=== PATIENT | male | born 1965 | race Caucasian/White ===

== ENCOUNTER → 2020-03-20 10:42 | Outpatient (CLI) | payer OTHER, SELFPAY ==
--- NOTE | ~2020-03-20 | CT_ITS ---
EXAMINATION: CT abdomen pelvis w con INDICATION: Malignant carcinoid tumor of the jejunum TECHNIQUE: Computed tomographic images of the abdomen and pelvis were obtained after the administrati on of 100 cc of Omnipaque 350 intravenous contrast. The dose-length product (DLP) was 474.00 mGy-cm. Automated exposure control and iterative reconstruction technique were employed. COMPARISON: 03/15/2019 FINDINGS: Minimal dependent atelectasis is present in the lung bases. The heart size is normal. The g allbladder is surgically absent. Punctate calcifications in an otherwise normal liver likely represen t healed granulomatous disease. The spleen, pancreas, and adrenal glands are normal. The kidneys are unremarkable. There are changes of right hemicolectomy. No pathologically enlarged abdominal or pelvi c lymph nodes are identified. There is no free intraperitoneal gas or evidence of bowel obstruction. There is moderate distention of the urinary bladder. There is moderate lumbar spondylosis. A tiny fat -containing umbilical hernia is noted. IMPRESSION: 1. No evidence of metastatic disease. Reviewed, dictated and finalized at location A.
[2020-03-20 11:03] LABS: Estimated Glomerular Filt Rate > 60
== END ==
PROVIDERS: PCP Internal Medicine; Visit Provider Internal Medicine Medical Oncology
DX: C7A.011 Malignant carcinoid tumor of the jejunum (principal)
CPT/HCPCS: 74177; Q9967

== ENCOUNTER 2020-03-21 07:33 | Outpatient (CLI) | payer OTHER, SELFPAY ==
[2020-03-21 08:47] LABS: Basophils Absolute Auto 0.1 K/mm3 (0.0-0.1); Eosinophils Absolute Auto 0.4 K/mm3 (0-0.3); Hematocrit 45.9 % (42.0-52.0); Immature Granulocyte Absolute 0.01 K/mm3 (0.00-0.031); Immature Granulocyte Percent A 0.2 % (0-0.5); Lymphocytes Absolute Auto 2.25 K/mm3 (0.9-3.2); Lymphocytes Percent Auto 45.3 % (18.3-44.2); Mean Corpuscular HGB Conc 34.9 g/dl (32-36); Mean Corpuscular Hemoglobin 31.5 pg (26-34); Mean Corpuscular Volume 90.4 fl (80-100); Mean Platelet Volume 9.2 fl (7.4-10.4); Monocytes Absolute Auto 0.3 K/mm3 (0.1-0.6); Monocytes Percent Auto 6.6 % (2.6-8.5); Neutrophils Percent Auto 39.9 % (45.5-73.1); Platelet Count Result 255 k/mm3 (150-375); Red Blood Count 5.08 M/mm3 (4.6-6.20); Red Cell Distribution Width 12.3 % (11.5-14.5)
[2020-03-21 09:02] LABS: Alanine Aminotransferase 41 U/L (4-50); Albumin Level 4.4 g/dL (3.5-5.1); Alkaline Phosphatase 78 U/L (38-126); Anion Gap 5 mmol/L (8-16); Aspartate Amino Transferase 37 U/L (17-59); Bilirubin,Total 0.7 mg/dL (0.2-1.3); Blood Urea Nitrogen 14 mg/dL (9-20); Calcium 9.2 mg/dL (8.4-10.2); Carbon Dioxide 30 mmol/L (22-30); Chloride 102 mmol/L (98-107); Cholesterol 196 mg/dL (0-200); Estimated Glomerular Filt Rate > 60; Glucose 85 mg/dL (75-110); HDL Direct 60 mg/dL; Potassium 4.8 mmol/L (3.4-5.0); Sodium 137 mmol/L (137-145); Triglycerides 93 mg/dL (<150)
[2020-03-21 09:13] LABS: LDL Cholesterol Direct 97 mg/dL
[2020-03-21 09:30] LABS: Prostate Specific Antigen 1.4 ng/mL (< OR = 4.0)
== END 2020-03-21 07:34 | disposition home or self-care (01) ==
PROVIDERS: PCP Internal Medicine; Visit Provider Internal Medicine
DX: Z00.00 Encounter for general adult medical examination without abnormal findings (principal)
CPT/HCPCS: 36415; 80053; 80061; 84153; 84443; 85025; G0103

== ENCOUNTER 2020-03-27 15:11 | Outpatient (CLI) | payer OTHER, SELFPAY ==
[2020-04-02 21:23] LABS: Chromogranin A 59 ng/mL (25-140)
== END 2020-03-27 15:12 | disposition home or self-care (01) ==
PROVIDERS: PCP Internal Medicine; Visit Provider Internal Medicine Medical Oncology
DX: C7A.011 Malignant carcinoid tumor of the jejunum (principal)
CPT/HCPCS: 36415; 86316

== ENCOUNTER 2020-09-24 14:26 | Outpatient (CLI) | payer OTHER, SELFPAY | END 2020-09-24 14:27 | disposition home or self-care (01) | LOC: ANHCOVIDVC 14:26 | PROVIDERS: PCP Internal Medicine | DX: Z23 Encounter for immunization (principal) | CPT/HCPCS: 0001A; 91300 ==

== ENCOUNTER 2020-10-15 14:24 | Outpatient (CLI) | payer OTHER, SELFPAY | END 2020-10-15 14:25 | disposition home or self-care (01) | LOC: ANHCOVIDVC 14:24 | PROVIDERS: PCP Internal Medicine | DX: Z23 Encounter for immunization (principal) | CPT/HCPCS: 0002A; 91300 ==

== ENCOUNTER → 2021-03-29 07:47 | Outpatient (CLI) | payer OTHER, SELFPAY ==
--- NOTE | ~2021-03-29 | CT_ITS ---
EXAMINATION: CT abdomen pelvis w con INDICATION: Malignant carcinoid tumor, unspecified site TECHNIQUE: Computed tomographic images of the abdomen and pelvis were obtained after the administrati on of 100 cc of Omnipaque 350 intravenous contrast. The dose-length product (DLP) was 479.90 mGy-cm. Automated exposure control and iterative reconstruction technique were employed. COMPARISON: 03/20/2020 FINDINGS: Minimal dependent atelectasis is present in the lung bases. The heart size is normal. The g allbladder is surgically absent. The liver, spleen, pancreas, and adrenal glands are normal. The kidn eys are unremarkable. Again noted are changes of right hemicolectomy. No pathologically enlarged abdo angel or pelvic lymph nodes are identified. There is no free intraperitoneal gas or evidence of bowel obstruction. There is moderate lumbar spondylosis. IMPRESSION: 1. No evidence of metastatic disease. Reviewed, dictated and finalized at location A.
[2021-03-29 08:21] LABS: Estimated Glomerular Filt Rate > 60
== END ==
PROVIDERS: PCP Internal Medicine; Visit Provider Internal Medicine Medical Oncology
DX: C7A.00 Malignant carcinoid tumor of unspecified site (principal)
CPT/HCPCS: 74177; Q9967

== ENCOUNTER 2021-04-05 07:01 | Outpatient (CLI) | payer OTHER, SELFPAY ==
[2021-04-05 07:32] LABS: Basophils Absolute Auto 0.1 K/mm3 (0.0-0.1); Basophils Percent Auto 0.8 % (0.2-1.2); Eosinophils Absolute Auto 0.6 K/mm3 (0-0.3); Eosinophils Percent Auto 9.2 % (0-4.4); Hematocrit 47.1 % (42.0-52.0); Hemoglobin 16.2 g/dL (14.0-18.0); Immature Granulocyte Absolute 0.01 K/mm3 (0.00-0.031); Immature Granulocyte Percent A 0.2 % (0-0.5); Lymphocytes Percent Auto 42.3 % (18.3-44.2); Mean Corpuscular HGB Conc 34.4 g/dl (32-36); Mean Corpuscular Volume 93.1 fl (80-100); Mean Platelet Volume 9.1 fl (7.4-10.4); Monocytes Absolute Auto 0.5 K/mm3 (0.1-0.6); Monocytes Percent Auto 7.7 % (2.6-8.5); Neutrophils Absolute Auto 2.5 K/mm3 (1.3-6.7); Neutrophils Percent Auto 39.8 % (45.5-73.1); Platelet Count Result 222 k/mm3 (150-375); Red Blood Count 5.06 M/mm3 (4.6-6.20); Red Cell Distribution Width 12.5 % (11.5-14.5); White Blood Count 6.4 K/mm3 (4.5-10.0)
[2021-04-05 09:12] LABS: Alanine Aminotransferase 33 U/L (4-50); Albumin Level 4.6 g/dL (3.5-5.1); Alkaline Phosphatase 66 U/L (38-126); Anion Gap 9 mmol/L (8-16); Aspartate Amino Transferase 34 U/L (17-59); Blood Urea Nitrogen 18 mg/dL (9-20); Calcium 9.7 mg/dL (8.4-10.2); Carbon Dioxide 26 mmol/L (22-30); Chloride 104 mmol/L (98-107); Estimated Glomerular Filt Rate > 60; Glucose 94 mg/dL (65-110); Lipase 192 U/L (23-300); Potassium 4.8 mmol/L (3.4-5.0); Sodium 139 mmol/L (137-145)
[2021-04-05 09:42] LABS: Prostate Specific Antigen 1.3 ng/mL (< OR = 4.0)
[2021-04-05 10:17] LABS: Folic Acid 8.5 ng/mL (2.76->20)
== END 2021-04-05 07:02 | disposition home or self-care (01) ==
PROVIDERS: PCP Internal Medicine; Visit Provider Internal Medicine
DX: Z00.00 Encounter for general adult medical examination without abnormal findings (principal); Z12.5 Encounter for screening for malignant neoplasm of prostate
CPT/HCPCS: 36415; 80053; 82607; 82746; 83690; 84153; 85025; G0103

== ENCOUNTER 2021-04-05 16:05 | Outpatient (CLI) | payer OTHER, SELFPAY | END 2021-04-05 16:06 | disposition home or self-care (01) | LOC: ANHLAB 16:07 | PROVIDERS: PCP Internal Medicine; Visit Provider Internal Medicine Medical Oncology | DX: C7A.00 Malignant carcinoid tumor of unspecified site (principal) | CPT/HCPCS: 36415; 86316 ==

== ENCOUNTER 2021-05-07 03:14 | Day surgery (SDC) | payer OTHER, SELFPAY ==
[2021-04-20 12:55] VITALS: BMI 25.8
[2021-05-07 09:07] VITALS: BP 135/83; PULSE 61; RESP 18; TEMP 36.1; O2SAT 100; BMI 26.0
[2021-05-07] MEDS: LACTATED RINGERS 1,000 ML 150 ML IV CONT (09:10)
--- NOTE | 2021-05-07 09:54 | PM.HPGS ---
History of Present Illness History of Present Illness Consent: Risks, benefits, and alternatives have been discussed and questions answered. Patient agrees to proceed with procedure. Chief complaint: dysphagia, neoplasm screening Narrative: Rubin Conklin is a 55 year old male Who has had difficulty swallowing. At times food will get caught a mess leave the table until what ever is caught will pass or at times he will even regurgitate food that has not passed. He occasionally gets heartburn but rarely. 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 Review of Systems Review of Systems: All systems reviewed & are unremarkable except as noted in HPI and below PMFSH Family History Family History Sibling Hypertension Mother Patient's mother is Family history of malignant neoplasm of breast, Onset Age: 42 Other Family history of malignant neoplasm Social History Social History Smoking status: Never smoker Second hand tobacco smoke exposure: No Alcohol intake: current Living arrangements: with family Spiritual care concerns: No Meds Home Medications and Allergies Home Medications Medication Instructions Recorded Confirmed Type ramipril 5 mg capsule 5 mg PO DAILY #90 cap 09/11/20 05/07/21 Rx albuterol sulfate 90 mcg/actuation 2 puff INHALATION Q4-6H PRN #8.5 g 09/18/20 05/07/21 Rx aerosol inhaler loratadine 10 mg tablet 10 mg PO DAILY 12/29/20 05/07/21 History omega-3 fatty acids 1,000 mg 1,000 mg PO DAILY 12/29/20 05/07/21 History capsule budesonide-formoterol [Symbicort] 1 puff INHALATION Q12H 04/20/21 05/07/21 History Allergies Allergy/AdvReac Type Severity Reaction Status Date / Time No Known Allergies Allergy Verified 05/07/21 09:07 Vital Signs Vital Signs - 24 hr 05/07/21 09:07 Temperature 36.1 C L Pulse Rate 61 Respiratory Rate 18 Blood Pressure 135/83 Pulse Oximetry 100 Exam Const: General: alert Orientation/consciousness: patient oriented x3 Resp: Auscultation: clear to auscultation bilaterally Cardio: Rhythm: regular rhythm GI: GI Palp: Yes Soft to palpation and No Tenderness to palpation present (GI) Neuro: General: patient oriented x3 Assessment and Plan Assessment and plan (1) Dysphagia: Code(s): R13.10 - Dysphagia, unspecified Status: Acute Assessment and Plan: EGD with possible biopsy or dilatation or cautery. (2) Neuroendocrine tumor: Code(s): D3A.8 - Other benign neuroendocrine tumors Status: Acute Assessment and Plan: Colonoscopy with possible biopsy or polypectomy or cautery or injection of substances.
--- NOTE | 2021-05-07 10:03 | P.PNAN_ITS ---
Anes - Initial Pre Proc Eval Procedure: Operation Date: 05/07/21 10:00 Proposed Procedures p Esophagogastroduodenoscopy & Screening Colonoscopy - Carlito Fowler MD Date/Time: 05/07/21 10:03 Surgeon: Carlito Fowler MD Pre Op Diagnosis: dysphagia, neoplasm screening Patient Data Age: 55 Gender: M Height: 1.68 m Weight: 73.3 kg Last Vital Signs Temp 96.9 F L 05/07/21 09:07 Pulse 61 05/07/21 09:07 Resp 18 05/07/21 09:07 BP 135/83 05/07/21 09:07 Pulse Ox 100 05/07/21 09:07 Allergies Allergy/AdvReac Type Severity Reaction Status Date / Time No Known Allergies Allergy Verified 05/07/21 09:07 Home Medications Medication Instructions Recorded Confirmed Type ramipril 5 mg capsule 5 mg PO DAILY #90 cap 09/11/20 05/07/21 Rx albuterol sulfate 90 mcg/actuation 2 puff INHALATION Q4-6H PRN #8.5 g 09/18/20 05/07/21 Rx aerosol inhaler loratadine 10 mg tablet 10 mg PO DAILY 12/29/20 05/07/21 History omega-3 fatty acids 1,000 mg 1,000 mg PO DAILY 12/29/20 05/07/21 History capsule budesonide-formoterol [Symbicort] 1 puff INHALATION Q12H 04/20/21 05/07/21 History Patient hx anesthesia problems: none Family hx anesthesia problems: none Results Review: All pre-operative results and documents have been reviewed as part of the pre-operative evaluation. [facility] Family History Family History Sibling Hypertension Mother Patient's mother is Family history of malignant neoplasm of breast, Onset Age: 42 Other Family history of malignant neoplasm Social History Social History Smoking status: Never smoker Second hand tobacco smoke exposure: No Alcohol intake: current Living arrangements: with family Spiritual care concerns: No Anes - Eval Final PreProcedure Day of Procedure 05/07/21 10:03 Patient weight: normal Heart: regular rate and rhythm Airway: Mallampati scale class II Neurological: alert and oriented Last oral intake: >/= 8 hours ASA classification: II Emergent: no Anesthetic plan: proceed Anesthesia type and monitoring: general GIVS and standard monitoring Results Review: All pre-operative results and documents have been reviewed as part of the pre-operative evaluation. Informed Consent: The patient's anesthetic plan and its attendant risks and benefits were discussed with the patient/family/POA. Questions were solicited and answers provided to the satisfaction of the patient/family/POA.
[2021-05-07] MEDS: BENZOCAINE (*SP) 60 ML SPRAY CAN (HURRICAINE) 1 SPRAY MUCOUS MEM (10:11)
--- NOTE | 2021-05-07 10:33 | SUR.OPER ---
EGD- [id number] [facility]- [id number]
[2021-05-07 10:41] VITALS: BP 98/62; PULSE 58; RESP 22; O2SAT 97
[2021-05-07 10:51] VITALS: BP 107/74; PULSE 53; RESP 18; O2SAT 97
[2021-05-07 11:01] VITALS: BP 113/80; PULSE 48; RESP 18; O2SAT 99
[2021-05-07 11:11] VITALS: BP 105/71; PULSE 56; RESP 15; O2SAT 100
== END 2021-05-07 11:33 | disposition home or self-care (01) ==
PROVIDERS: PCP Internal Medicine; Visit Provider Internal Medicine Gastroenterology
PROC: 0DJ08ZZ Inspection of Upper Intestinal Tract, Via Natural or Artificial Opening Endoscopic (ICD-10-PCS; CPT 43235; principal; 2021-05-07 10:00)
DX: Z12.11 Encounter for screening for malignant neoplasm of colon (principal); K64.8 Other hemorrhoids; K22.2 Esophageal obstruction; Z79.51 Long term (current) use of inhaled steroids; Z87.19 Personal history of other diseases of the digestive system
CPT/HCPCS: 45378; 43249; 43239; 87081; 88305; C1726; J2370; J2704; J7120

== ENCOUNTER → 2022-04-01 10:23 | Outpatient (CLI) | payer OTHER, SELFPAY ==
--- NOTE | ~2022-04-01 | CT_ITS ---
EXAMINATION: CT abdomen pelvis w con DATE: 04/01/2022 10:47 INDICATION: Malignant carcinoid tumor of unspecified site. TECHNIQUE: Computed tomography (CT) of the abdomen and pelvis was performed with 100 mL Omnipaque 350 intravenous contrast. Automated exposure control and iterative reconstruction technique were employe d. The dose-length product was 510.73 mGy-cm. COMPARISON: CT abdomen and pelvis 03/29/2021, 03/20/20, 03/15/19, 03/14/18, 06/16/17, 06/20/11 FINDINGS: The visualized portions of the lung bases demonstrate mild atelectasis. No pleural effusion . The heart size is normal. No pericardial effusion. There is a 5 mm cyst in the liver. There is an 8 mm hyperenhancing mass in left hepatic lobe. There are changes of cholecystectomy. The spleen, pancr eas, adrenal glands, and kidneys are normal. There are no dilated loops of bowel. There are changes o f right hemicolectomy. There are no pathologically enlarged lymph nodes. There is no free intraperito johnny fluid. There are bilateral inguinal hernias containing fat. There is severe thoracolumbar spondy losis. IMPRESSION: 1. 8 mm hyperenhancing mass in left hepatic lobe suspicious for metastatic carcinoid. Reviewed, dictated and finalized at location A. IMPRESSION: 1. 8 mm hyperenhancing mass in left hepatic lobe suspicious for metastatic carc inoid.
[2022-04-01 10:38] LABS: Estimated Glomerular Filt Rate > 60
== END ==
PROVIDERS: PCP Internal Medicine; Visit Provider Internal Medicine Medical Oncology
DX: C7A.00 Malignant carcinoid tumor of unspecified site (principal)
CPT/HCPCS: 74177; Q9967

== ENCOUNTER → 2022-05-02 12:00 | Outpatient (CLI) | payer OTHER, SELFPAY ==
--- NOTE | ~2022-05-02 | MR_ITS ---
EXAMINATION: MR abdomen wo/w con DATE: 05/02/2022 13:26 INDICATION: Malignant carcinoid tumor. TECHNIQUE: Magnetic resonance imaging (MRI) of the abdomen was performed without and with 15 mL Multi Perri intravenous contrast. COMPARISON: CT abdomen and pelvis 04/01/2022 FINDINGS: There is an 8 mm hyperenhancing mass in segment IVb of the liver. There is a 6 mm hyperenhancing mass in segment . The gallbladder is absent. The spleen, pancreas, adrenal glands, and kidneys are norm al. There are no dilated loops of bowel. There are no pathologically enlarged lymph nodes. There is n o free intraperitoneal fluid. IMPRESSION: 1. Two hyperenhancing liver masses measuring up to 8 mm suspicious for metastatic carcinoid. Reviewed, dictated and finalized at location B. IMPRESSION: 1. Two hyperenhancing liver masses measuring up to 8 mm suspicious for metastat ic carcinoid.
== END ==
PROVIDERS: PCP Internal Medicine; Visit Provider Internal Medicine Medical Oncology
DX: R93.5 Abnormal findings on diagnostic imaging of other abdominal regions, including retroperitoneum (principal); R16.0 Hepatomegaly, not elsewhere classified; C7A.00 Malignant carcinoid tumor of unspecified site
CPT/HCPCS: 74183; A9577

== ENCOUNTER → 2022-07-22 11:59 | Outpatient (CLI) | payer OTHER, SELFPAY ==
--- NOTE | ~2022-07-22 | MR_ITS ---
EXAMINATION: MR abdomen wo/w con DATE: 07/22/2022 13:15 INDICATION: Malignant carcinoid tumor. TECHNIQUE: Magnetic resonance imaging (MRI) of the abdomen was performed without and with 15 mL Multi Perri intravenous contrast. COMPARISON: Abdomen MRI 05/02/2022, CT abdomen and pelvis 05/01/2022 FINDINGS: There is a 9 mm arterially hyperenhancing mass in segment IVb of the liver. There is a 5 mm cyst in r ight hepatic lobe. The gallbladder is absent. The pancreas, spleen, adrenal glands, and kidneys are n ormal. There are no dilated loops of bowel. There are no pathologically enlarged lymph nodes. There i s no free intraperitoneal fluid. IMPRESSION: 1. Stable 9 mm arterially enhancing mass in segment IVb of the liver suspicious for metastatic carcin oid. Reviewed, dictated and finalized at location A. UPPER AND BOTTOM LACER IMPRESSION: 1. Stable 9 mm arterially enhancing mass in segment IVb of the liver suspicious for metastatic carcinoid.
== END ==
PROVIDERS: PCP Internal Medicine; Visit Provider Internal Medicine Medical Oncology
DX: K76.9 Liver disease, unspecified (principal); C7A.00 Malignant carcinoid tumor of unspecified site
CPT/HCPCS: 74183; A9577

== ENCOUNTER → 2022-10-21 13:44 | Outpatient (CLI) | payer OTHER, SELFPAY ==
--- NOTE | ~2022-10-21 | MR_ITS ---
EXAMINATION: MR abdomen wo/w con DATE: 10/21/2022 14:39 INDICATION: Malignant carcinoid tumor of unspecified site. TECHNIQUE: Magnetic resonance imaging (MRI) of the abdomen was performed without and with 14 mL Multi Perri intravenous contrast. COMPARISON: Abdomen MRI 07/22/22 FINDINGS: There is a 9 mm arterially hyperenhancing mass in segment IVb of the liver. The gallbladder is absent . The spleen, pancreas, adrenal glands, and kidneys are normal. There are no dilated loops of bowel. There are no pathologically enlarged lymph nodes. There is no free intraperitoneal fluid. IMPRESSION: 1. Stable 9 mm arterially enhancing mass in segment IVb of the liver suspicious for metastatic carcin nisha. Reviewed, dictated and finalized at location A. IMPRESSION: 1. Stable 9 mm arterially enhancing mass in segment IVb of the liver suspicious for metastatic carcinoma.
== END ==
PROVIDERS: PCP Internal Medicine; Visit Provider Internal Medicine Medical Oncology
DX: K76.9 Liver disease, unspecified (principal); C7A.00 Malignant carcinoid tumor of unspecified site
CPT/HCPCS: 74183

== ENCOUNTER 2022-11-15 14:26 | Outpatient (CLI) | payer OTHER, SELFPAY ==
[2022-11-15 16:38] LABS: Basophils Absolute Auto 0.1 K/mm3 (0.0-0.1); Basophils Percent Auto 0.8 % (0.2-1.2); Eosinophils Absolute Auto 0.4 K/mm3 (0-0.3); Eosinophils Percent Auto 5.1 % (0-4.4); Hematocrit 46.7 % (42.0-52.0); Hemoglobin 16.5 g/dL (14.0-18.0); Immature Granulocyte Absolute 0.02 K/mm3 (0.00-0.031); Immature Granulocyte Percent A 0.3 % (0-0.5); Lymphocytes Absolute Auto 2.74 K/mm3 (0.9-3.2); Lymphocytes Percent Auto 37.9 % (18.3-44.2); Mean Corpuscular HGB Conc 35.3 g/dl (32-36); Mean Corpuscular Hemoglobin 32.2 pg (26-34); Mean Platelet Volume 9.7 fl (7.4-10.4); Monocytes Absolute Auto 0.6 K/mm3 (0.1-0.6); Monocytes Percent Auto 7.6 % (2.6-8.5); Neutrophils Absolute Auto 3.5 K/mm3 (1.3-6.7); Neutrophils Percent Auto 48.3 % (45.5-73.1); Platelet Count Result 249 k/mm3 (150-375); Red Blood Count 5.13 M/mm3 (4.6-6.20); White Blood Count 7.2 K/mm3 (4.5-10.0)
[2022-11-15 16:48] LABS: Alanine Aminotransferase 32 U/L (6-50); Albumin Level 4.7 g/dL (3.5-5.1); Alkaline Phosphatase 70 U/L (38-126); Anion Gap 7 mmol/L (8-16); Aspartate Amino Transferase 37 U/L (17-59); Bilirubin,Total 0.9 mg/dL (0.2-1.3); Blood Urea Nitrogen 19 mg/dL (9-20); CRP < 0.5 mg/dL (<1.0); Calcium 9.3 mg/dL (8.4-10.2); Carbon Dioxide 25 mmol/L (22-30); Chloride 103 mmol/L (98-107); Estimated Glomerular Filt Rate > 60; Glucose 86 mg/dL (65-110); Potassium 4.1 mmol/L (3.4-5.0); Sodium 135 mmol/L (137-145)
== END 2022-11-15 14:27 | disposition home or self-care (01) ==
PROVIDERS: PCP Internal Medicine; Visit Provider Internal Medicine Medical Oncology
DX: K76.9 Liver disease, unspecified (principal); C7A.00 Malignant carcinoid tumor of unspecified site
CPT/HCPCS: 36415; 80053; 85025; 86140; 86316

== ENCOUNTER → 2023-02-13 12:31 | Outpatient (CLI) | payer OTHER, SELFPAY ==
--- NOTE | ~2023-02-13 | MR_ITS ---
EXAMINATION: MR abdomen wo/w con DATE: 02/13/2023 13:43 INDICATION: Carcinoid tumor. TECHNIQUE: Magnetic resonance imaging (MRI) of the abdomen was performed without and with 14 mL Multi Perri intravenous contrast. COMPARISON: Abdomen MRI 10/21/2022 FINDINGS: There is a 5 mm cyst in the liver. There is a 9 mm arterially hyperenhancing mass in segment IVb of t he liver. The gallbladder is absent. The spleen, pancreas, adrenal glands, and kidneys are normal. Th ere are no dilated loops of bowel. There are no pathologically enlarged lymph nodes. There is no free intraperitoneal fluid. IMPRESSION: 1. Stable 9 mm arterially hyperenhancing liver mass suspicious for metastatic carcinoid. Reviewed, dictated and finalized at location A. IMPRESSION: 1. Stable 9 mm arterially hyperenhancing liver mass suspicious for metastatic c arcinoid.
== END ==
PROVIDERS: PCP Internal Medicine; Visit Provider Internal Medicine Medical Oncology
DX: C7A.00 Malignant carcinoid tumor of unspecified site (principal)
CPT/HCPCS: 74183; A9577

== ENCOUNTER 2023-02-25 07:21 | Outpatient (CLI) | payer OTHER, SELFPAY ==
[2023-02-25 07:48] LABS: Basophils Percent Auto 0.5 % (0.2-1.2); Eosinophils Absolute Auto 0.5 K/mm3 (0-0.3); Eosinophils Percent Auto 5.7 % (0-4.4); Hematocrit 47.4 % (42.0-52.0); Hemoglobin 16.2 g/dL (14.0-18.0); Immature Granulocyte Absolute 0.01 K/mm3 (0.00-0.031); Immature Granulocyte Percent A 0.1 % (0-0.5); Lymphocytes Absolute Auto 2.91 K/mm3 (0.9-3.2); Lymphocytes Percent Auto 34.4 % (18.3-44.2); Mean Corpuscular HGB Conc 34.2 g/dl (32-36); Mean Corpuscular Hemoglobin 31.6 pg (26-34); Mean Corpuscular Volume 92.4 fl (80-100); Mean Platelet Volume 9.1 fl (7.4-10.4); Monocytes Absolute Auto 0.6 K/mm3 (0.1-0.6); Monocytes Percent Auto 6.5 % (2.6-8.5); Neutrophils Absolute Auto 4.5 K/mm3 (1.3-6.7); Neutrophils Percent Auto 52.8 % (45.5-73.1); Platelet Count Result 221 k/mm3 (150-375); Red Blood Count 5.13 M/mm3 (4.6-6.20); Red Cell Distribution Width 12.3 % (11.5-14.5); White Blood Count 8.5 K/mm3 (4.5-10.0)
[2023-02-25 07:59] LABS: Alanine Aminotransferase 44 U/L (6-50); Albumin Level 4.7 g/dL (3.5-5.1); Alkaline Phosphatase 79 U/L (38-126); Anion Gap 8 mmol/L (8-16); Aspartate Amino Transferase 38 U/L (17-59); Bilirubin,Total 1.4 mg/dL (0.2-1.3); Blood Urea Nitrogen 16 mg/dL (9-20); Calcium 9.6 mg/dL (8.4-10.2); Carbon Dioxide 28 mmol/L (22-30); Chloride 100 mmol/L (98-107); Cholesterol 255 mg/dL (0-200); Estimated Glomerular Filt Rate > 60; Glucose 88 mg/dL (65-110); HDL Direct 52 mg/dL; Potassium 4.2 mmol/L (3.4-5.0); Sodium 136 mmol/L (137-145); Triglycerides 223 mg/dL (<150)
[2023-02-25 08:13] LABS: LDL Cholesterol Direct 127 mg/dL
[2023-02-25 08:34] LABS: Prostate Specific Antigen 1.5 ng/mL (< OR = 4.0)
== END 2023-02-25 07:22 | disposition home or self-care (01) ==
PROVIDERS: PCP Internal Medicine; Visit Provider Internal Medicine
DX: Z00.00 Encounter for general adult medical examination without abnormal findings (principal); Z12.5 Encounter for screening for malignant neoplasm of prostate
CPT/HCPCS: 36415; 80053; 80061; 84153; 84443; 85025; G0103

== ENCOUNTER 2023-04-19 01:23 | Day surgery (SDC) | payer OTHER, SELFPAY ==
[2023-04-12 13:13] VITALS: BMI 25.8
--- NOTE | 2023-04-18 13:23 | PM.HPGS ---
History of Present Illness History of Present Illness Consent: Risks, benefits, and alternatives have been discussed and questions answered. Patient agrees to proceed with procedure. Chief complaint: dysphagia Narrative: Rubin Conklin is a 57 year old male who has been having dysphagia for solid food. He has an esophageal stricture found 2 years ago. At that time it was dilated up to 19 mm. Over The last several months he has had increasing difficulty with swallowing Review of Systems Review of Systems: All systems reviewed & are unremarkable except as noted in HPI and below PMFSH Family History Family History Sibling Hypertension Mother Patient's mother is Family history of malignant neoplasm of breast, Onset Age: 42 Other Family history of malignant neoplasm Social History Social History Smoking status: Never smoker Second hand tobacco smoke exposure: No Alcohol intake: current Drinks per week: 7 Substance use: never Substance use type: does not use Lack of Transportation: No Lack of Food: Never True Current Housing: I Have Housing Concerned About Future Housing: No Difficulty Paying Gas/Electric Bills: No Difficulty Paying for Meds: No Currently Unemployed: No Education: Bachelor's Degree Difficulty w/ Childcare or Family Care: No Living arrangements: with family Spiritual care concerns: No Meds Home Medications and Allergies Home Medications Medication Instructions Recorded Confirmed Type albuterol sulfate 90 mcg/actuation 2 puff inhalation Q4-6H PRN 09/18/20 04/12/23 Rx aerosol inhaler (Ventolin HFA) shortness of breath or wheezing #8.5 grams loratadine 10 mg tablet (Claritin) 10 mg PO DAILY 12/29/20 04/12/23 History omega-3 fatty acids 1,000 mg 1,000 mg PO DAILY 12/29/20 04/12/23 History capsule (Fish Oil Concentrate) ramipril 5 mg capsule 5 mg PO DAILY #90 caps 02/16/23 04/12/23 Rx budesonide-formoterol HFA 80 1 puff inhalation Q12H #10.2 grams 04/03/23 04/12/23 Rx mcg-4.5 mcg/actuation aerosol inhaler (Symbicort) Allergies Allergy/AdvReac Type Severity Reaction Status Date / Time No Known Allergies Allergy Verified 04/19/23 07:44 Exam Const: General: alert Orientation/consciousness: patient oriented x3 Resp: Auscultation: clear to auscultation bilaterally Cardio: Rhythm: regular rhythm GI: GI Palp: Yes Soft to palpation and No Tenderness to palpation present (GI) Neuro: General: patient oriented x3 Assessment and Plan Assessment and plan (1) Dysphagia: Code(s): R13.10 - Dysphagia, unspecified Status: Acute Assessment and Plan: EGD with possible biopsy or dilatation or cautery.
[2023-04-19 07:45] VITALS: BP 119/87; PULSE 59; RESP 20; TEMP 36.6; O2SAT 20
[2023-04-19] MEDS: LACTATED RINGERS 1,000 ML 150 ML IV CONT (07:54)
--- NOTE | 2023-04-19 08:52 | P.PNAN_ITS ---
Anes - Initial Pre Proc Eval Procedure: Operation Date: 04/19/23 09:00 Proposed Procedures p Esophagogastroduodenoscopy - Carlito Fowler MD Date/Time: 04/19/23 08:52 Surgeon: Carlito Fowler MD Pre Op Diagnosis: dysphagia Patient Data Age: 57 Gender: M Height: 1.68 m Weight: 74.6 kg Last Vital Signs Temp 98 F 04/19/23 07:45 Pulse 59 L 04/19/23 07:45 Resp 20 04/19/23 07:45 BP 119/87 04/19/23 07:45 Pulse Ox 20 L 04/19/23 07:45 O2 Del Method Room Air 04/19/23 07:45 Allergies Allergy/AdvReac Type Severity Reaction Status Date / Time No Known Allergies Allergy Verified 04/19/23 07:44 Home Medications Medication Instructions Recorded Confirmed Type albuterol sulfate 90 mcg/actuation 2 puff inhalation Q4-6H PRN 09/18/20 04/12/23 Rx aerosol inhaler (Ventolin HFA) shortness of breath or wheezing #8.5 grams loratadine 10 mg tablet (Claritin) 10 mg PO DAILY 12/29/20 04/12/23 History omega-3 fatty acids 1,000 mg 1,000 mg PO DAILY 12/29/20 04/12/23 History capsule (Fish Oil Concentrate) ramipril 5 mg capsule 5 mg PO DAILY #90 caps 02/16/23 04/12/23 Rx budesonide-formoterol HFA 80 1 puff inhalation Q12H #10.2 grams 04/03/23 04/12/23 Rx mcg-4.5 mcg/actuation aerosol inhaler (Symbicort) Patient hx anesthesia problems: none Family hx anesthesia problems: none Results Review: All pre-operative results and documents have been reviewed as part of the pre- operative evaluation. [facility] Family History Family History Sibling Hypertension Mother Patient's mother is Family history of malignant neoplasm of breast, Onset Age: 42 Other Family history of malignant neoplasm Social History Social History Smoking status: Never smoker Second hand tobacco smoke exposure: No Alcohol intake: current Drinks per week: 7 Substance use: never Substance use type: does not use Lack of Transportation: No Lack of Food: Never True Current Housing: I Have Housing Concerned About Future Housing: No Difficulty Paying Gas/Electric Bills: No Difficulty Paying for Meds: No Currently Unemployed: No Education: Bachelor's Degree Difficulty w/ Childcare or Family Care: No Living arrangements: with family Spiritual care concerns: No Anes - Eval Final PreProcedure Day of Procedure 04/19/23 08:52 Patient weight: normal Heart: regular rate and rhythm Lungs: clear to auscultation Airway: Mallampati scale class II Neurological: alert and oriented Last oral intake: >/= 8 hours ASA classification: III Emergent: no Anesthetic plan: proceed Anesthesia type and monitoring: general GIVS and standard monitoring Results Review: All pre-operative results and documents have been reviewed as part of the pre- operative evaluation. Informed Consent: The patient's anesthetic plan and its attendant risks and benefits were dis cussed with the patient/family/POA. Questions were solicited and answers provided to the satisfaction of the patient/family/POA.
[2023-04-19 09:05] VITALS: BP 101/65; PULSE 57; RESP 20; O2SAT 20
[2023-04-19 09:15] VITALS: BP 101/69; PULSE 58; RESP 20; O2SAT 20
[2023-04-19 09:25] VITALS: BP 103/73; PULSE 52; RESP 20; O2SAT 20
== END 2023-04-19 09:36 | disposition home or self-care (01) ==
PROVIDERS: PCP Internal Medicine; Visit Provider Internal Medicine Gastroenterology
PROC: 0DJ08ZZ Inspection of Upper Intestinal Tract, Via Natural or Artificial Opening Endoscopic (ICD-10-PCS; CPT 43235; principal; 2023-04-19 09:00)
DX: K22.2 Esophageal obstruction (principal); Z79.51 Long term (current) use of inhaled steroids
CPT/HCPCS: 43249; C1726; J2704; J7120

== ENCOUNTER → 2023-06-19 13:51 | Outpatient (CLI) | payer OTHER, SELFPAY ==
--- NOTE | ~2023-06-19 | MR_ITS ---
EXAMINATION: MR abdomen wo/w con DATE: 06/19/2023 14:36 INDICATION: Malignant carcinoid tumor TECHNIQUE: Magnetic resonance imaging (MRI) of the abdomen was performed without and with 15 mL Multi leanne intravenous contrast. Sequences included coronal T2-weighted SS-FSE, coronal and axial FS 2D-F IESTA, axial STIR FSE, axial T2-weighted SS-FSE, axial T2-weighted FS SS-FSE, axial diffusion-weighte d SE, axial dual-echo T1-weighted FSPGR, and axial and coronal T1-weighted LAVA. Postcontrast axial T 1-weighted LAVA images were obtained in a time course. Postcontrast coronal T1-weighted LAVA images w ere obtained. COMPARISON: 02/13/2023 FINDINGS: Heart size is normal. No pericardial or pleural effusion. No interval change in a 5 mm cyst at the ju nction of segments 6 and 7 of the liver. No significant interval change in an 8 mm hyperenhancing nod ule in segment IVb of the liver. No new hepatic lesions identified. Gallbladder is absent. Spleen, pa ncreas, bilateral adrenal glands and kidneys are normal. Postoperative change of prior partial right hemicolectomy with ileocolic anastomosis in the right upper quadrant. Visualized portions of bowels a re otherwise unremarkable. No pathologically enlarged abdominal lymphadenopathy. Moderate thoracic an d lumbar spondylosis with a few small Schmorl's nodes in the upper lumbar and lower thoracic spine. IMPRESSION: 1. Unchanged 8 mm arterial hyperenhancing lesion in segment IVb of the liver consistent with reported history of carcinoid tumor. Reviewed, dictated and finalized at location A. OMER ACQUISITION SPECIALIST IMPRESSION: 1. Unchanged 8 mm arterial hyperenhancing lesion in segment IVb of the liver co nsistent with reported history of carcinoid tumor.
== END ==
PROVIDERS: PCP Internal Medicine; Visit Provider Internal Medicine Medical Oncology
DX: C7A.00 Malignant carcinoid tumor of unspecified site (principal)
CPT/HCPCS: 74183; A9577

== ENCOUNTER 2023-12-22 13:33 | Outpatient (CLI) | payer BC, SELFPAY ==
--- NOTE | ~2023-12-22 | MR_ITS ---
MRI of the abdomen: Clinical indication: Normal in carcinoid tumor COMPARISON: 06/19/2023. Technique: Coronal SSFSE ARC, WATER:coronal LAVA-FLEX, Coronal 2D FIESTA FatSat, Axial SSFSE BH ARC, Axial 3D DualEcho BH, Axial SSFSE-IR, Axial DWI b=500, Axial 2D FIESTA FatSat, pre and dynamic postco ntrast Axial LAVA ARC, postcontrast Coronal In and Opposed phase LAVA FLEX. Following intravenous adm inistration of 15 cc MultiHance gadolinium, T1-weighted fat-sat imaging was performed in the axial an d coronal planes. Findings: Gallbladder absent. The common bile duct is normal in course and caliber. No filling defect s are seen within the CBD. No evidence of intrahepatic biliary ductal dilatation. The pancreatic duct is normal in size. Possible 6 mm enhancing focus in the inferior left hepatic lobe adjacent the falciform ligament, ariel lar to slightly less conspicuous than on prior exam. The spleen, pancreas, adrenals, kidneys appear n ormal. The aorta and the paraaortic regions appear normal. Impression: 6 mm enhancing focus in the inferior left hepatic lobe, as detailed above, similar to slightly less c onspicuous as compared to prior exam. Reviewed, dictated and finalized at location M. Impression: 6 mm enhancing focus in the inferior left hepatic lobe, as detailed above, ariel lar to slightly less conspicuous as compared to prior exam.
== END 2023-12-22 13:34 ==
PROVIDERS: PCP Internal Medicine Medical Oncology; Visit Provider Internal Medicine Medical Oncology
DX: C7A.00 Malignant carcinoid tumor of unspecified site (principal)
CPT/HCPCS: 74183; A9577

== ENCOUNTER 2023-12-28 10:53 | Outpatient (CLI) | payer BC, SELFPAY ==
[2023-12-28 11:15] LABS: Basophils Percent Auto 0.7 % (0.2-1.2); Eosinophils Absolute Auto 0.2 K/mm3 (0-0.3); Eosinophils Percent Auto 3.3 % (0-4.4); Hematocrit 46.5 % (42.0-52.0); Hemoglobin 16.3 g/dL (14.0-18.0); Immature Granulocyte Absolute 0.01 K/mm3 (0.00-0.031); Immature Granulocyte Percent A 0.2 % (0-0.5); Lymphocytes Percent Auto 34.4 % (18.3-44.2); Mean Corpuscular HGB Conc 35.1 g/dl (32-36); Mean Corpuscular Hemoglobin 31.8 pg (26-34); Mean Corpuscular Volume 90.6 fl (80-100); Mean Platelet Volume 9.1 fl (7.4-10.4); Monocytes Absolute Auto 0.4 K/mm3 (0.1-0.6); Monocytes Percent Auto 7.2 % (2.6-8.5); Neutrophils Absolute Auto 3.3 K/mm3 (1.3-6.7); Neutrophils Percent Auto 54.2 % (45.5-73.1); Platelet Count Result 219 k/mm3 (150-375); Red Blood Count 5.13 M/mm3 (4.6-6.20); Red Cell Distribution Width 12.7 % (11.5-14.5); White Blood Count 6.1 K/mm3 (4.5-10.0)
[2023-12-28 11:28] LABS: Alanine Aminotransferase 74 U/L (6-50); Alkaline Phosphatase 83 U/L (38-126); Anion Gap 10 mmol/L (4-12); Aspartate Amino Transferase 82 U/L (17-59); Blood Urea Nitrogen 18 mg/dL (9-20); Calcium 9.4 mg/dL (8.4-10.2); Carbon Dioxide 27 mmol/L (22-30); Chloride 101 mmol/L (98-107); Estimated Glomerular Filt Rate > 60; Glucose 87 mg/dL (65-110); Potassium 4.4 mmol/L (3.4-5.0); Sodium 138 mmol/L (137-145)
== END 2023-12-28 10:54 | disposition home or self-care (01) ==
LOC: ANHLAB 10:57
PROVIDERS: PCP Internal Medicine Medical Oncology; Visit Provider Internal Medicine Medical Oncology
DX: C7A.00 Malignant carcinoid tumor of unspecified site (principal)
CPT/HCPCS: 36415; 80053; 85025; 86141; 86316

== ENCOUNTER 2024-06-21 12:52 | Outpatient (CLI) | payer BC, SELFPAY ==
--- NOTE | ~2024-06-21 | MR_ITS ---
EXAMINATION: MR abdomen wo/w con DATE: 06/21/2024 13:59 INDICATION: Malignant carcinoid tumor of unspecified. TECHNIQUE: Magnetic resonance imaging (MRI) of the abdomen was performed without and with 15 mL Multi Perri intravenous contrast. COMPARISON: Abdomen MRI 12/22/2023, 07/22/22 FINDINGS: There is a 7 mm arterially enhancing mass in segment IVb of the liver without washout. There is a 5 m m cyst in right hepatic lobe. The gallbladder is absent. The spleen, pancreas, adrenal glands, and ki dneys are normal. There are no dilated loops of bowel. IMPRESSION: 1. Chronic 7 mm arterially enhancing mass in segment IVb of the liver. The differential diagnosis inc ludes focal nodular hyperplasia, hemangioma, and metastatic carcinoid. Reviewed, dictated and finalized at location A. FINISHER IMPRESSION: 1. Chronic 7 mm arterially enhancing mass in segment IVb of the liver. The diff erential diagnosis includes focal nodular hyperplasia, hemangioma, and metastat ic carcinoid.
== END 2024-06-21 12:53 | disposition home or self-care (01) ==
PROVIDERS: PCP Internal Medicine Medical Oncology; Visit Provider Internal Medicine Medical Oncology
DX: C7A.00 Malignant carcinoid tumor of unspecified site (principal)
CPT/HCPCS: 74183; A9577

== ENCOUNTER 2024-09-14 10:39 | Outpatient (CLI) | payer BC, SELFPAY ==
[2024-09-14 11:35] LABS: Alanine Aminotransferase 29 U/L (6-50); Albumin Level 4.7 g/dL (3.5-5.1); Alkaline Phosphatase 71 U/L (38-126); Anion Gap 9 mmol/L (4-12); Aspartate Amino Transferase 29 U/L (17-59); Bilirubin,Total 1.2 mg/dL (0.2-1.3); Blood Urea Nitrogen 16 mg/dL (9-20); Calcium 9.4 mg/dL (8.4-10.2); Carbon Dioxide 28 mmol/L (22-30); Chloride 101 mmol/L (98-107); Cholesterol 233 mg/dL (0-200); Estimated Glomerular Filt Rate > 60; Glucose 82 mg/dL (65-110); HDL Direct 55 mg/dL; Potassium 4.7 mmol/L (3.4-5.0); Sodium 138 mmol/L (137-145); Triglycerides 158 mg/dL (<150)
[2024-09-14 11:46] LABS: LDL Cholesterol Direct 108 mg/dL
[2024-09-14 12:05] LABS: Prostate Specific Antigen 2.2 ng/mL (< OR = 4.0)
[2024-09-18 16:28] LABS: Immunoglobulin A 204 mg/dL (47-310); TTG IGA AB <1.0 U/mL
== END 2024-09-14 10:40 | disposition home or self-care (01) ==
LOC: ANHLAB 10:40
PROVIDERS: PCP Clinical Nurse Specialist; Visit Provider Clinical Nurse Specialist
DX: E78.5 Hyperlipidemia, unspecified (principal); R74.01 Elevation of levels of liver transaminase levels; Z12.5 Encounter for screening for malignant neoplasm of prostate
CPT/HCPCS: 36415; 80053; 80061; 82784; 84153; 86364; G0103

== ENCOUNTER 2025-04-10 07:26 | Outpatient (CLI) | payer BC, SELFPAY ==
--- OUTSIDE RECORDS SUMMARY | 2025-04-10 07:32 | XMS_ITS | Clinical Summary ---
Author Organization [facility] Address [facility] [place] [address] Care Team Providers Care Transportation Engineer Name Role Phone Unavailable Primary Care Provider Unavailabl e Social History Tobacco Use Types Packs/Day Years Used Date Smoking Tobacco: Never Assessed Sex and Gender Information Value Date Recorded Sex Assigned at Not on file Legal Sex Male 8:35 PM CDT Gender Identity Not on file Sexual Orientation Not on file Plan of Treatment Health Maintenance Due Date Last Done Comments Colorectal Cancer Screening Colonoscopy (10 Years) 1965 Annual Physical 1968 Hepatitis C 11/25/1983 DTaP, Tdap and Td Vaccines ( 1 - Tdap) 1984 Pneumococcal Vaccine: 50+ Ye ars (1 of 1 - PCV) 11/25/2015 Zoster Vaccines (1 of 2) 11/25/2015 COVID-19 Vaccine (2023-2 5 season) 2025 Meningococcal B Vaccine Aged Out No l onger eligible based on patient's age to complete this topic Meningococcal Vaccine Aged Out No maría dora eligible based on patient's age to complete this topic RSV Immunizations Under 20 Months Aged Out No longer eligible based on patient's age to complete this topic
--- OUTSIDE RECORDS SUMMARY | 2025-04-10 07:32 | XMS_ITS | Encounter Summary ---
Author Organization [facility] Address [address] [place] [address] Phone Care Team Providers Care Control Center Operator Name Role Phone Joe Fenton MD Primary Care Provider [phone] Krystian Joshi DO Unavailable [phone] Encounter Details Date Type Department Care Team (Latest Contact Info) Description 03/27/2020 Orders Only [facility] Scanning, Provider Social History Tobacco Use Types Packs/Day Years Used Date Smoking Tobacco: Never Smokeless Tobacco: Never Sex and Gender Information Value Date Recorded Sex Assigned at Not on file 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 Gender Identity Not on file Sexual Orientation Not on file documented as of this encounter Plan of Treatment Not on file documented as of this encounter Procedures Procedure Name Priority Date/Time Associated Diagnosis Comments SCAN - LABS 03/27/2020 documented in this encounter Results * SCAN - LABS (03/27/2020) us Provider Scanning Final Result documented in this encounter Visit Diagnoses Not on filedocumented in this encounter Care Teams Control Center Operator Relationship Specialty Start Date End Date Joe Fenton MD [address] [facility] [address] [place] [address] PCP - General 09/15/17 [place] [address] [place] [address] MEDICAL ONCOLOGY, [facility] [address] [place] [address] Medical Oncologist/Paperhanger Hematology and Oncology 11/16/22 documented as of this encounter
--- OUTSIDE RECORDS SUMMARY | 2025-04-10 07:32 | XMS_ITS | Clinical Summary ---
Author Organization [facility] Address [address] [facility] [address] [place] [address] Phone Care Team Providers Care Dramatic Art Teacher Name Role Phone Joe Fenton DO Primary Care Provider Medications polyethylene glycol (MIRALAX) Powder Mix the entire bottle with 64 oz of a clear liquid. Use as directed by the office for colonoscopy prep. 255 g 7 Active Social History Tobacco Use Types Packs/Day Years Used Date Smoking Tobacco: Never Assessed Sex and Gender Information Value Date Recorded Sex Assigned at Not on file Legal Sex Male 12:44 AM CDT Gender Identity Not on file Sexual Orientation Not on file Plan of Treatment Health Maintenance Due Date Last Done Comments Hepatitis C Virus (HCV) Screening 1965 TdaP Immunization 1965 Hepatitis B Immunization (1 of 3 - 19+ 3-dose series) 1984 Cologuard 2010 Colonoscopy 2010 Colorectal Cancer Screening 2010 Immunochemical Fecal Occult Blood 2010 Pneumococcal Immunization (5 0+ years) (1 of 1 - PCV) 11/25/2015 Zoster Immunization (1 of 2) 11/25/2015 SARS-COV-2 Immunization ( - 2023- season) 2024 Influenza Immunization (#1) 2025 Respiratory Syncytial Virus (RSV) Immunization (Adult) (1 - 1-dose 75+ series) 2040 Human Papillomavirus (HPV) Immunization Aged Out No longer eligible b ased on patient's age to complete this topic Meningococcal Immunization (ACWY) Aged Out No longer eligible based on patient's age to complete this topic Rotavirus Immunization Aged Out No lo nger eligible based on patient's age to complete this topic Care Teams Dramatic Art Teacher Relationship Specialty Start Date End Date Joe Fenton DO [address] [facility] [address] [place] [address] PCP - General Internal Medicine 12/28/16
--- OUTSIDE RECORDS SUMMARY | 2025-04-10 07:32 | XMS_ITS | Clinical Summary ---
Author Organization [facility] Address [address] [place] [address] Phone Care Team Providers Care Water System Operator Name Role Phone Joe Fenton MD Primary Care Provider [phone] Krystian Joshi DO Unavailable [phone] Allergies No known active allergies Medications ramipril (ALTACE) 5 mg capsule 02/23/2018 Active albuterol HFA (PROVENTIL HFA,VENTOLIN HFA,PROAIR HFA) 90 mcg/actuation inhaler 02/21/2020 Active loratadine (CLARITIN) 10 mg tablet Take 1 tablet (10 mg total) by mouth daily Active docosahexaenoic acid/epa (FISH OIL ORAL) Take by mouth daily Active Symbicort 80-4.5 mcg/actuation inhaler INHALE 2 PUFFS BY MOUTH EVERY 12 HOURS 03/18/2021 Active turmeric root extract 500 mg capsule Take by mouth Active diazePAM (VALIUM) 5 mg tablet Take 1 tablet (5 mg total) by mouth once for 1 dose Take prior to MRI scan 1 tablet 12/29/2023 Active Active Problems Problem Noted Date Diagnosed Date Malignant carcinoid tumor 03/23/2018 Immunizations Immunization Administration Dates Next Due Pfizer SARS-CoV-2 Monovalent Vaccination (12+ Yrs) PURPLE 05/24/2021,10/25/2020,09/24/2020 Tdap 10/16/2015 Surgical History Surgery Date Site/Laterality Comments US GUIDED BIOPSY LIVER 05/27/2022 N/A Social History Tobacco Use Types Packs/Day Years Used Date Smoking Tobacco: Never Smokeless Tobacco: Never AUDIT-C Answer Date Recorded Q1: How often do you have a drink containing alcohol? Never 12/29/2023 Q2: How many drinks containi ng alcohol do you have on a typical day when you are drinking? Patient does not drink Q3: How often do you have si x or more drinks on one occasion? 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 Gender Identity Not on file Sexual Orientation Not on file Obstetrics History Last Filed Vital Signs Vital Sign Reading Time Taken Comments Blood Pressure 130/90 06/28/2024 2:19 PM ASSISTANT SALES DIRECTOR Pulse 66 06/28/2024 2:19 PM ASSISTANT SALES DIRECTOR Temperature 36.4 C (97.5 F) 06/28/2024 2:19 PM ASSISTANT SALES DIRECTOR Respiratory Rate 17 06/28/2024 2:19 PM ASSISTANT SALES DIRECTOR Oxygen Saturation 98% 06/28/2024 2:19 PM ASSISTANT SALES DIRECTOR Inhaled Oxygen Concentration - - Weight 74.4 kg (164 lb 0.4 oz) 06/28/2024 2:19 P M ASSISTANT SALES DIRECTOR Height 167.6 cm (5' 6) 06/26/2023 2:53 PM ASSISTANT SALES DIRECTOR Body Mass Index 26.47 06/26/2023 2:53 PM ASSISTANT SALES DIRECTOR Plan of Treatment Health Maintenance Due Date Last Done Comments Colon Cancer Screening-Colonoscopy 1965 Depression Screening 1965 Hepatitis C Screening 1965 Prostate Cancer Screening-PSA 1965 Hepatitis B Screening 11/25/1983 Regular Well Visit/Exam 18-64 11/25/1983 Zoster Vaccine (1 of 2) 11/25/2015 Covid-19 Vaccine (4 - 2024-2 6 season) 2025 05/24/2021, 10/25/2020, 09/24/2020 Influenza Vaccine (#1) 2025 DTaP/Tdap/Td Vaccine (2 - Td or Tdap) 10/15/2025 10/16/2015 Pneumococcal vaccine <65 Aged Out No longer eligible based on patient's age to complete this topic Insurance [facility] [employer] ACCESS OOS Advance Directives For more information, please contact: [phone] * Full Code (Latest Code Status on File) Date Activated Date Inactivated Comments 05/27/2022 9:07 AM 05/28/2022 4:54 AM Care Teams Water System Operator Relationship Specialty Start Date End Date Joe Fenton MD [address] [facility] [address] [place], [place] [id number] PCP - General 09/15/17 Krystian Joshi DO [address] [place] [address] MEDICAL ONCOLOGY, [facility] [address] [place] [address] Medical Oncologist/Registered Nurse Behavioral Health Hematology and Oncology 11/16/22
--- OUTSIDE RECORDS SUMMARY | 2025-04-10 07:32 | XMS_ITS | Clinical Summary ---
Author Organization [facility] [employer] Address [address] [facility] [address] Care Team Providers Care Processing Engineer Name Role Phone Joe Fenton DO Primary Care Provider [phone] Source Comments [facility] [employer],non-owned Affiliates and Associated Physician Practices is amultiple site organization consisting of ambulatory clinics and hospital sitesin [place], [place], [place] and [place]. This disclosure is being madepursuant to the Care Everywhere program and may not contain all information available regarding this patient. 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 Gender Identity Not on file Sexual Orientation Not on file Plan of Treatment Health Maintenance Due Date Last Done Comments COLOGUARD (AGES 45-75) - COL ON CA SCREENING 1965 COLON MONITORING 1965 COLONOSCOPY - COLON CA SCREENING 1965 CT COLONOGRAPHY - COLON CA SCREENING 1965 Colorectal Cancer Screening 1965 FIT - COLON CA SCREENING 1965 FLEX SIG - COLON CA SCREENING 1965 LIPID TESTING 1965 HIV SCREENING 1980 HEPATITIS C SCREENING 11/20/1983 DTAP/TDAP/TD VACCINES (1 - Tdap) 1984 HEPATITIS B VACCINE (1 of 3 - 19+ 3-dose series) 1984 PNEUMOCOCCAL VACCINE 50+ (1 of 1 - PCV) 11/25/2015 ZOSTER VACCINE (1 of 2) 11/25/2015 DEPRESSION SCREENING 07/17/2024 COVID-19 VACCINE (1 - 2023-2 5 season) 2025 INFLUENZA VACCINE (#1) 2025 HIB VACCINE Aged Out No longer eligi ble based on patient's age to complete this topic HPV VACCINE Aged Out No longer eligi ble based on patient's age to complete this topic MENINGOCOCCAL (Group B) VACC INE SHARED DECISION-MAKING Aged Out No longer eligibl e based on patient's age to complete this topic MENINGOCOCCAL GROUPS A/C/Y/W VACCINE Aged Out No longer eligible b ased on patient's age to complete this topic Insurance Care Teams Processing Engineer Relationship Specialty Start Date End Date Joe Fenton DO [address] [facility] [address] [facility] [address] [place], [place] [id number] PCP - General 06/13/11
[2025-04-10 07:55] LABS: Hematocrit 48.5 % (42.0-52.0); Hemoglobin 16.6 g/dL (14.0-18.0); Immature Granulocyte Percent A 0.3 % (0-0.5); Lymphocytes Absolute Auto 2.36 K/mm3 (0.9-3.2); Mean Corpuscular HGB Conc 34.2 g/dl (32-36); Mean Corpuscular Hemoglobin 31.3 pg (26-34); Mean Corpuscular Volume 91.3 fl (80-100); Nucleated Red Blood Cells Absolute Auto 0.000 K/mm3 (0.0-0.012); Nucleated Red Blood Cells Perc 0.0 % (0.0-0.2); Platelet Count Result 241 k/mm3 (150-375); Red Blood Count 5.31 M/mm3 (4.6-6.20); White Blood Count 5.9 K/mm3 (4.5-10.0)
[2025-04-10 08:16] LABS: Alanine Aminotransferase 31 U/L (6-50); Albumin Level 4.5 g/dL (3.5-5.1); Alkaline Phosphatase 81 U/L (38-126); Anion Gap 7 mmol/L (4-12); Aspartate Amino Transferase 34 U/L (17-59); Bilirubin,Total 1.3 mg/dL (0.2-1.3); Blood Urea Nitrogen 19 mg/dL (9-20); Calcium 9.5 mg/dL (8.4-10.2); Carbon Dioxide 29 mmol/L (22-30); Chloride 101 mmol/L (98-107); Cholesterol 229 mg/dL (0-200); Estimated Glomerular Filt Rate > 60; Glucose 87 mg/dL (65-110); HDL Direct 54 mg/dL; Potassium 4.5 mmol/L (3.4-5.0); Sodium 137 mmol/L (137-145); Total Protein 7.9 g/dL (6.3-8.2); Triglycerides 147 mg/dL (<150)
[2025-04-10 08:24] LABS: Hemoglobin A1C 5.0 % (<5.7)
[2025-04-10 08:52] LABS: Prostate Specific Antigen 2.5 ng/mL (< OR = 4.0)
== END 2025-04-10 07:27 | disposition home or self-care (01) ==
LOC: ANHLAB 07:28
PROVIDERS: PCP Clinical Nurse Specialist; Visit Provider Clinical Nurse Specialist
DX: E78.5 Hyperlipidemia, unspecified (principal); I10 Essential (primary) hypertension; J45.909 Unspecified asthma, uncomplicated; R97.20 Elevated prostate specific antigen [PSA]
CPT/HCPCS: 36415; 80053; 80061; 83036; 84153; 85025

== ENCOUNTER 2025-06-17 13:55 | Outpatient (CLI) | payer BC, SELFPAY ==
--- NOTE | ~2025-06-17 | MR_ITS ---
EXAMINATION: MR abdomen wo/w con DATE: 06/17/2025 14:46 INDICATION: Malignant carcinoid tumor TECHNIQUE: Magnetic resonance imaging (MRI) of the abdomen was performed without and with 15 mL Multihance intravenous contrast. Sequences included coronal T2- weighted SS-FSE, coronal and axial FS 2D-FIESTA, axial STIR FSE, axial T2- weighted SS-FSE, axial T2-weighted FS SS-FSE, axial diffusion-weighted SE, axial dual-echo T1-weighted FSPGR, and axial and coronal T1-weighted LAVA. Postcontrast axial T1-weighted LAVA images were obtained in a time course. Postcontrast coronal T1-weighted LAVA images were obtained. COMPARISON: 06/21/2024 FINDINGS: Heart size is normal. No pericardial or pleural effusion. 6 mm T2 hyperintense avidly enhancing lesion in the right hepatic lobe at the junction of segments 6 and 7 with persistent enhancement on the 5 and 10 minute images most consistent with a flash filling hemangioma. 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 No other new or enlarging hepatic lesions identified. No pathologically enlarged abdominal lymphadenopathy. Moderate lumbar and lower thoracic spondylosis with scattered fibrofatty degenerative endplate changes. Bone marrow signal is otherwise unremarkable. Pancreas, spleen, bilateral adrenal glands and kidneys are normal. Postoperative change of prior right hemicolectomy with right upper quadrant ileocolic anastomosis. IMPRESSION: 1. Decrease in size of a 4-5 mm arterial enhancing lesion in segment IVb of the liver which could represent response to treatment of reported metastatic carcinoid. A second unchanged 6 mm enhancing lesion in the right hepatic lobe persists on the 10 minute delayed images most consistent with a flash filling hemangioma. No other new or enlarging hepatic lesions identified. Reviewed, dictated and finalized at location A. [facility] IMPRESSION: 1. Decrease in size of a 4-5 mm arterial enhancing lesion in segment IVb of the liver which could represent response to treatment of reported metastatic carci noid. A second unchanged 6 mm enhancing lesion in the right hepatic lobe persis ts on the 10 minute delayed images most consistent with a flash filling hemangi nisha. No other new or enlarging hepatic lesions identified.
== END 2025-06-17 13:56 | disposition home or self-care (01) ==
LOC: MICIMG 13:55
PROVIDERS: PCP Internal Medicine Medical Oncology; Visit Provider Internal Medicine Medical Oncology
DX: C7A.00 Malignant carcinoid tumor of unspecified site (principal)
CPT/HCPCS: 74183; A9577